=== PATIENT | male | born 1980 | race Caucasian/White ===

== ENCOUNTER 2019-04-17 14:17 | Emergency (ER) | payer MEDICAID, OTHER ==
[~2019-04-17] VITALS: Ht 170.2 cm; Wt 54.4 kg
[2019-04-17] MEDS ORDERED: SODIUM CHLORIDE 0.9% 1,000 ML IV ONE ×2 (14:38)
[2019-04-17] MEDS ORDERED: PROCHLORPERAZINE EDISYLATE 5 MG/ML 2ML VIAL IV ONE (14:45)
[2019-04-17] MEDS ORDERED: NALBUPHINE HCL 10 MG/1ml INJECTION IV ONE (14:45)
[2019-04-17 15:09] LABS: Hemoglobin 15.7 g/dL (13.5-17.5)
[2019-04-17 15:10] LABS: Calcium 9.1 mg/dL (8.5-10.1); Hematocrit 46.5 % (41.0-53.0); Mean Corpuscular Hgb Conc. 33.9 g/dL (32.0-36.0); Mean Corpuscular Volume 103.5 fL (80.0-100.0); Platelet Count (auto) 371 10^3/uL (140-450); Potassium 4.2 mmol/L (3.5-5.1); Red Blood Cells 4.49 10^6/uL (4.5-5.90); Red Cell Distribution Width 13.1 % (11.8-14.3)
[2019-04-17 15:13] LABS: Total Protein 7.7 g/dL (6.4-8.2)
[2019-04-17 15:17] LABS: White Blood Cell 32.1 10^3/uL (4.4-10.8)
[2019-04-17 15:18] LABS: Band Neutrophils % (manual) 0; Basophils % (manual) 0 (0.0-2.0); Blast Cells 0; Eosinophils % (manual) 0 (0-7); Metamyelocytes % 0; Myelocytes % 0; Promyelocytes % 0; Reactive Lymphocytes 0
[2019-04-17] MEDS ORDERED: cefTRIAXone 1GM/50ML D5W 50 ML IV ONE (15:45)
[2019-04-17 17:11] VITALS: BP 101/59
[2019-04-17 17:26] LABS: Lymphocytes % (manual) 3 (10.0-50.0); Monocytes % (manual) 5 (0-12)
== END 2019-04-17 17:21 | disposition home or self-care (01) ==
LOC: EDBD 14:17 → ER 14:23 → EDSEX 14:23 → ER 17:21
DX: F12.90 Cannabis use, unspecified, uncomplicated (principal); R11.2 Nausea with vomiting, unspecified; R10.9 Unspecified abdominal pain; Z88.5 Allergy status to narcotic agent
CPT/HCPCS: 36415; 80053; 85007; 85027; 96361; 96365; 96375; 99283; J0696; J0780; J2300

== ENCOUNTER 2019-07-20 18:51 | Emergency (ER) | payer MEDICAID, OTHER ==
[~2019-07-20] VITALS: Ht 170.2 cm; Wt 52.2 kg
[2019-07-20 18:53] VITALS: BP 108/72
[2019-07-20 20:13] LABS: Basophils # (auto) 0.2 uL; Basophils % (auto) 0.8 % (0.0-2.0); Eosinophils # (auto) 0.3 uL; Eosinophils % (auto) 1.5 % (0.0-7.0); Hematocrit 42.3 % (41.0-53.0); Hemoglobin 14.6 g/dL (13.5-17.5); Lymphocytes # (auto) 2.3 uL; Mean Corpuscular Hemoglobin 33.9 pg (28.0-32.0); Mean Corpuscular Hgb Conc. 34.4 g/dL (32.0-36.0); Mean Corpuscular Volume 98.7 fL (80.0-100.0); Monocytes % (auto) 9.6 % (0.0-12.0); Neutrophils % (auto) 77.1 % (37.0-80.0); Platelet Count (auto) 381 10^3/uL (140-450); Red Blood Cells 4.29 10^6/uL (4.5-5.90); Red Cell Distribution Width 13.3 % (11.8-14.3); White Blood Cell 20.7 10^3/uL (4.4-10.8)
[2019-07-20 20:53] LABS: Urine Bacteria FEW /hpf (None Seen); Urine Blood Negative /uL (Negative); Urine Specific Gravity 1.004 (1.001-1.035); Urine WBC 8 /hpf (0 - 3)
[2019-07-20 21:01] LABS: Albumin 3.8 g/dL (3.4-5.0); Calcium 8.7 mg/dL (8.5-10.1); Potassium 3.3 mmol/L (3.5-5.1)
[2019-07-20 21:06] LABS: BUN/Creatinine Ratio 8.8; Bilirubin, Total 0.9 mg/dL (0.2-1.0); Total Protein 6.9 g/dL (6.4-8.2)
[2019-07-20] MEDS ORDERED: ONDANSETRON ODT 4 MG TAB PO ONE (22:15)
== END 2019-07-21 00:25 | disposition left against medical advice (07) ==
LOC: EDBD 18:51 → EDUNIT# 18:54 → EDSEX 18:54 → ER 18:54
DX: R10.9 Unspecified abdominal pain (principal); Z53.21 Procedure and treatment not carried out due to patient leaving prior to being seen by health care provider
CPT/HCPCS: 36415; 80053; 81001; 85025; Q0162